=== PATIENT | female | born 1960 | race Caucasian/White ===

== ENCOUNTER 2018-03-25 17:30 | Inpatient (IN) | payer MEDICARE, OTHER ==
[~2018-03-25] VITALS: Ht 172.7 cm; Wt 75.0 kg
[2018-03-25] MEDS: SOD CHLORIDE 0.9% 1,000 ML IV SCH (07:30)
[~2018-03-25 17:30] MED LIST: RANI150T35 PO
[2018-03-25] MEDS ORDERED: SODIUM CHLORIDE 0.9% 1L BAG IV* STA (17:32)
[2018-03-25 17:34] VITALS: Ht 172.7 cm; Wt 75.0 kg
--- NOTE | 2018-03-25 17:37 | ERD ---
ER Documentation Chief Complaint Chief Complaint Syncope versus near syncope with low blood pressure. HPI 58-year-old female who presents from long-term facility with prior history of head trauma who presents to the emergency room with generalized weakness. She describes at least 3 days of generalized weakness with possible mechanical fall several days ago. EMS reports syncope versus near syncope. Blood pressure upon arrival is in the 70s. She denies any head trauma, hematemesis, nausea vomiting or diarrhea. She has no significant pain at this time other than generalized discomfort to her whole body. She denies any other extremity pain or injury. No chest pain shortness of breath pleuritic pain or mid back pain. ROS All systems reviewed and are negative except as per history of present illness. Medications Home Meds Reported Medications Aripiprazole* (Abilify*) 15 Mg Tablet, 15 MG PO DAILY, #30 TAB 03/25/18 Esomeprazole Mag Trihydrate (Nexium) 40 Mg Capsule.dr, 40 MG PO DAILY, #30 CAP 03/25/18 Quetiapine Fumarate* (Quetiapine Fumarate*) 300 Mg Tablet, 300 MG PO HS, TAB 03/25/18 Oxcarbazepine* (Oxcarbazepine*) 300 Mg Tablet, 300 MG PO BID, TAB 03/25/18 Tramadol Hcl* (Ultram*) 50 Mg Tablet, 50 MG PO Q8, TAB 03/25/18 Gabapentin* (Gabapentin*) 100 Mg Capsule, 100 MG PO TID, #90 CAP 03/25/18 Simvastatin* (Zocor*) 20 Mg Tablet, 20 MG PO QHS, #30 TAB 03/25/18 Lisinopril* (Lisinopril*) 40 Mg Tablet, 40 MG PO DAILY, #30 TAB 03/25/18 Loperamide Hcl* (Loperamide Hcl*) 2 Mg Cap, 2 MG PO, CAP 03/25/18 Discontinued Reported Medications Omeprazole* (Omeprazole*) 20 Mg Capsule.dr, 20 MG PO DAILY, #30 CAP 03/25/18 Discontinued Scripts Ranitidine Hcl* (Zantac*) 150 Mg Tablet, 150 MG PO BID PRN for GASTROINTESTINAL UPSET, #30 TAB Prov:MARLENY SORIANO 09/26/14 Allergies Allergies: Coded Allergies: carbamazepine (Verified Allergy, Unknown, RASH, 03/25/18) codeine (Verified Allergy, Unknown, RASH, 03/25/18) PMhx/Soc History of Surgery: No Anesthesia Reaction: No Hx Neurological Disorder: No Hx Respiratory Disorders: No Hx Cardiac Disorders: Yes (HTN) Hx Psychiatric Problems: No Hx Miscellaneous Medical Probl: No Hx Alcohol Use: No Hx Substance Use: No Hx Tobacco Use: Yes FmHx Family History: No diabetes Physical Exam Vitals Vital Signs Date Temp Pulse Resp B/P (MAP) Pulse Ox O2 O2 Flow FiO2 Time Delivery Rate 03/25/18 97.8 86 15 93/47 (62) 100 Room Air 19:00 03/25/18 84 16 94/63 (73) 100 Room Air 18:45 03/25/18 79 17 83/45 (58) 100 Room Air 18:25 03/25/18 79 21 59/45 (50) 93 Room Air 18:20 03/25/18 76 20 84/44 (57) 96 Room Air 17:45 03/25/18 Nasal 2 17:40 Cannula 03/25/18 98.0 74 16 84/52 (63) 99 17:34 Physical Exam Airway is intact Bilateral breath sounds Strong distal pulses No obvious deficits General: Well developed, well nourished, no acute distress Head: Normocephalic, atraumatic Eyes: Pupils equally reactive, EOM intact ENT: very dry mucous membranes Neck: Supple, no lymphadenopathy, No midline tenderness, deformities, step-offs to the cervical spine, full active and passive range of motion without midline pain. Respiratory: Lungs clear bilaterally, no distress, no chest wall tenderness, no crepitus Cardiovascular: RRR, no murmurs, rubs, or gallops Abdominal: Soft, non-tender, non-distended, no peritoneal signs, pelvis is stable : Deferred MSK: No edema, no unilateral swelling, 5/5 strength, no midline tenderness deformities or step-offs to the thoracolumbar spine Neurologic: Alert and oriented, moving all extremities, normal speech, no focal weakness, no cerebellar signs Skin: No ecchymoses or bruising to the chest or abdomen Psych: Normal mood Result Diagram: 03/25/18 1742 03/25/18 1742 Results 24 hrs Laboratory Tests Test 03/25/18 17:42 03/25/18 18:00 White Blood Count 8.6 10^3/ul Red Blood Count 3.69 10^6/ul Hemoglobin 12.1 g/dl Hematocrit 35.4 % Mean Corpuscular Volume 95.9 fl Mean Corpuscular Hemoglobin 32.8 pg Mean Corpuscular Hemoglobin Concent 34.2 g/dl Red Cell Distribution Width 12.4 % Platelet Count 204 10^3/UL Mean Platelet Volume 11.0 fl Immature Granulocytes % 0.300 % Neutrophils % 57.3 % Lymphocytes % 27.8 % Monocytes % 9.8 % Eosinophils % 4.1 % Basophils % 0.7 % Nucleated Red Blood Cells % 0.0 /100WBC Immature Granulocytes # 0.030 10^3/ul Neutrophils # 5.0 10^3/ul Lymphocytes # 2.4 10^3/ul Monocytes # 0.9 10^3/ul Eosinophils # 0.4 10^3/ul Basophils # 0.1 10^3/ul Nucleated Red Blood Cells # 0.0 10^3/ul Prothrombin Time 13.0 Sec Prothrombin Time Ratio 1.0 INR International Normalized Ratio 0.97 Activated Partial Thromboplast Time 26.4 Sec Sodium Level 130 mmol/L Potassium Level 4.5 mmol/L Chloride Level 92 mmol/L Carbon Dioxide Level 18 mmol/L Anion Gap 20 Blood Urea Nitrogen 64 mg/dl Creatinine 11.00 mg/dl Est Glomerular Filtrat Rate mL/min 4 mL/min Glucose Level 97 mg/dl Calcium Level 8.8 mg/dl Total Bilirubin 0.0 mg/dl Direct Bilirubin 0.00 mg/dl Indirect Bilirubin 0.0 mg/dl Aspartate Amino Transf (AST/SGOT) 17 IU/L Alanine Aminotransferase (ALT/SGPT) 10 IU/L Alkaline Phosphatase 77 IU/L Troponin I < 0.012 ng/ml Total Protein 7.5 g/dl Albumin 4.1 g/dl Globulin 3.40 g/dl Albumin/Globulin Ratio 1.20 Lipase 51 U/L POC Venous Lactate 1.2 mmol/L Current Medications Medications Dose Sig/Yusuf Start Time Status Last (Trade) Ordered Route PRN Stop Time Admin Dose Reason Admin Sodium 2,700 ml BOLUS OVER 2 03/25/18 DC 03/25/18 Chloride HOURS STAT 17:32 03/25/18 18:17 (NS) IV* 17:34 Procedures/MDM EKG, MONITORS, & DIAGNOSTIC IMAGING: EKG: I reviewed and interpreted a 12-lead EKG. Rhythm: Normal sinus rhythm ST Changes: No contiguous ST segment elevations T waves: No contiguous T wave inversions Impression: [No evidence of acute cardiac ischemia] CXR IMPRESSION: Mild right base atelectasis/consolidation. Aortic calcifications. Further findings as detailed above. RPTAT: HVF CT brain IMPRESSION: Evaluation is mildly limited due to motion degradation. 1. No acute intracranial hemorrhage or extra-axial fluid collection. 2. Minimal generalized cerebral volume loss. Further findings as detailed above. RPTAT: HVF CT a/p IMPRESSION: Sigmoid diverticulosis without evidence of diverticulitis. Minimal vascular calcifications reflective of atherosclerosis. Otherwise no acute abnormality identified within the abdomen and pelvis. LAB INTERPRETATION: * CBC shows no evidence of infection with a normal white count 8.6, hemoglobin of 12.1 and normal platelets * Chemistry with multiple abnormalities including hyponatremia of 130, acute renal failure with metabolic acidosis with a BUN of 64 and a creatinine of 11 * Normal lactic acid * Negative troponin MEDICAL DECISION MAKING: The patient presents with nonspecific symptoms. Additionally she may have had a fall several days ago. Advanced imaging will be obtained including CT imaging of the head and abdomen and pelvis. Clinically she appears dehydrated. The patient's laboratory testing reveals acute renal failure. Patient's laboratory testing suggest dehydration in the setting of hyponatremia. Elevated creatinine. The patient has no evidence of infectious process with a normal white count, no fever, normal lactic acid. Urinalysis is still pending. The patient's blood pressure remains borderline however she appears well clinically. She is protecting her airway, conversive and appropriate. Her blood pressure seems to be responding to fluid resuscitation at this time. Currently the patient does not have a source of infection and does not have an infectious process that warrants antibiotics. Blood cultures have been collected, continue to monitor. ER COURSE: * The patient is still undergoing fluid resuscitation. The patient's blood pressure is improving. At this point I do not believe a central line is indicated. She is mentating well, perfusing and seems to be responding to fluid resuscitation. * I spoke to Dr. Skinner, on-call for nephrology who will consult on the case. No indication for emergent dialysis at this time. * Advanced imaging reveals no acute process at this time. CONSULTATION: Nephrology as above DISPOSITION PLAN: Intensive care unit Critical Care Note: Total time: 45 minutes Indication/Organ System Threat: Severe dehydration, acute renal failure I spent the above amount of critical care time with the patient, not including billable procedures. This included chart review, consultations, repeat bedside evaluations, and titration of appropriate medications to prevent cardiopulmonary or respiratory collapse. Departure Diagnosis: Primary Impression: Acute renal failure Acute renal failure type: unspecified Qualified Codes: N17.9 - Acute kidney failure, unspecified Additional Impressions: Hyponatremia Severe dehydration Condition: Critical TINAA ORTEGA MD Mar 25, 2018 17:37
[2018-03-25] MEDS ORDERED: LOPE-123 PO (18:35)
[2018-03-25] MEDS ORDERED: OMEP20CA16 PO (18:35)
[2018-03-25] MEDS ORDERED: SIMV20TA PO (18:36)
[2018-03-25] MEDS ORDERED: LISI40TA3 PO (18:36)
[2018-03-25] MEDS ORDERED: GABA100C14 PO (18:36)
[2018-03-25] MEDS ORDERED: TRAM50TA PO (18:37)
[2018-03-25] MEDS ORDERED: OXCA300T41 PO (18:38)
[2018-03-25] MEDS ORDERED: QUET300T18 PO (18:38)
[2018-03-25] MEDS ORDERED: ESOM40CA PO (18:38)
[2018-03-25] MEDS ORDERED: ARIP15TA3 PO (18:39)
[2018-03-25] MEDS ORDERED: BISACODYL (EC) 5 MG TAB PO PRN (20:30)
[2018-03-25] MEDS ORDERED: ONDANSETRON 4 MG TAB PO PRN (20:30)
[2018-03-25] MEDS ORDERED: ACETAMINOPHEN 650MG/20.3ML CUP PO PRN (20:30)
[2018-03-25] MEDS ORDERED: DOCUSATE SODIUM 100 MG CAP PO PRN (20:30)
--- NOTE | 2018-03-25 20:34 | HP ---
Date/Time of Note Date/Time of Note DATE: 03/25/18 TIME: 20:33 Assessment/Plan VTE Prophylaxis SCD applied (from Nsg): Yes Pharmacological prophylaxis: heparin Lines/Catheters IV Catheter Type (from Nrsg): Saline Lock Assessment/Plan Hospital Course This is a 58-year-old female being admitted to the ICU floor for: #1 Volume depletion with hypotension: Patient does have a sodium of 130. Patient appears to be severely dehydrated. Will check a CK level. Patient was started on aggressive IV fluid hydration in the ED, will continue aggressive IV fluid hydration with normal saline. Patient's blood pressures do seem to be responding to fluid resuscitation. Her mucous membranes do appear dry. Serial CMP's. #2 severe nonoliguric acute versus acute on chronic kidney injury: I do not have a previous baseline creatinine. Creatinine on presentation was 11. Suspicion right now is likely prerenal, secondary to severe volume depletion, christy use. Continue aggressive IV fluid hydration. Avoid nephrotoxic agents. Hold christy. Will check renal ultrasound, urine microscope, urinalysis, urine studies. Will consult nephrology Dr. Horton. #3 acute encephalopathy: Toxic metabolic versus other. CT scan of the head is negative. Patient does appear to be possibly under the influence of illicit substance. I will check a urine drug screen. #4 Syncopal versus near syncopal episode: CT scan of the head was negative. Will check echocardiogram, carotid ultrasound. #5 possible history of hypertension: We will need to reassess when encephalopathy improved, corroborate with any friends or family #6 possible history of mood disorder: We will need to reassess when encephalopathy improved, corroborate with any friends or family #7 possible history of hyperlipidemia: We will check lipid panel, We will need to reassess when encephalopathy improved, corroborate with any friends or family #8 DVT GI prophylaxis: Heparin, Protonix Further treatment strategy will be implemented as per the clinical course greater than 35 minutes critical care time spent on the care management this patient. Result Diagram: 03/25/18 1742 03/25/18 1742 Results 24hrs Laboratory Tests Test 03/25/18 17:42 03/25/18 18:00 White Blood Count 8.6 Red Blood Count 3.69 L Hemoglobin 12.1 Hematocrit 35.4 L Mean Corpuscular Volume 95.9 Mean Corpuscular Hemoglobin 32.8 Mean Corpuscular Hemoglobin Concent 34.2 Red Cell Distribution Width 12.4 Platelet Count 204 Mean Platelet Volume 11.0 H Immature Granulocytes % 0.300 Neutrophils % 57.3 Lymphocytes % 27.8 Monocytes % 9.8 Eosinophils % 4.1 Basophils % 0.7 Nucleated Red Blood Cells % 0.0 Immature Granulocytes # 0.030 Neutrophils # 5.0 Lymphocytes # 2.4 Monocytes # 0.9 Eosinophils # 0.4 Basophils # 0.1 Nucleated Red Blood Cells # 0.0 Prothrombin Time 13.0 Prothrombin Time Ratio 1.0 INR International Normalized Ratio 0.97 Activated Partial Thromboplast Time 26.4 Sodium Level 130 L Potassium Level 4.5 Chloride Level 92 L Carbon Dioxide Level 18 L Anion Gap 20 H Blood Urea Nitrogen 64 H Creatinine 11.00 H Est Glomerular Filtrat Rate mL/min 4 L Glucose Level 97 Calcium Level 8.8 Total Bilirubin 0.0 L Direct Bilirubin 0.00 Indirect Bilirubin 0.0 Aspartate Amino Transf (AST/SGOT) 17 Alanine Aminotransferase (ALT/SGPT) 10 L Alkaline Phosphatase 77 Troponin I < 0.012 Total Protein 7.5 Albumin 4.1 Globulin 3.40 H Albumin/Globulin Ratio 1.20 Lipase 51 POC Venous Lactate 1.2 HPI/ROS Admit Date/Time Admit Date/Time Hx of Present Illness Chief complaint: Generalized weakness, possible syncope The following history was obtained from the ED physician documentation as well as from the patient however the patient also is a poor historian. This is a 58-year-old female who presents from [facility] facility with prior history of head trauma who presents to the emergency room with generalized weakness. She describes at least 3 days of generalized weakness with possible mechanical fall several days ago. EMS reports syncope versus near syncope. Blood pressure upon arrival is in the 70s. Patient is a poor historian and she does display a odd affect. She denies any head trauma, hematemesis, nausea vomiting or diarrhea. She denies any history of kidney disease. She is not able to provide me an adequate history regarding her past medical history. Allergies: NKDA Medications: See May Const: As per HPI Eyes : No pain discharge or redness or change in visual acuity ENT: No pain, sore throat, congestion, congestion, dysphagia or discharge Respiratory: No shortness of breath, cough, sputum, wheezing, or pleuritic pain Cardiovascular: No chest pain, palpitation, PND, or edema GI : no change in appetite, abdominal pain, nausea, vomiting, diarrhea, constipation, or change in the color his stool Genitourinary: No dysuria, hematuria, flank pain , discharge or CVA tenderness Musculoskeletal: No joint pain, back pain, neck pain, restricted range of motion in neck or joints Skin: No rash, bruising or hives Neuro: As per HPI Endocrine: No polyuria, polydipsia, temperature intolerance Psych: No hallucination, depression, anxiety or suicidal ideation Additional Comments PROCEDURE: CT Abdomen and pelvis without contrast. CLINICAL INDICATION: Abdominal pain. TECHNIQUE: CT scan of the abdomen and pelvis was performed on a multi- detector high-resolution CT scanner. Contiguous axial images were obtained from the lung bases to the ischial tuberosities without intravenous contrast. Coronal and sagittal reformatted images were also obtained. Images were reviewed on the PACS workstation. DICOM images are available. One or more of the following dose reduction techniques were used: - Automated exposure control. - Adjustment of the mA and/or kV according to patient size. - Use of iterative reconstruction technique. Exam CTD/vol = 15.49 mGy. Total exam DLP = 993.19 mGy-cm. COMPARISON: None. FINDINGS: Evaluation of the lung bases demonstrates mild bibasilar atelectasis and scarring. Abdomen: The liver is normal in size. There is no focal mass or dilatation of the biliary tree. The gallbladder is not distended. The spleen, pancreas and bilateral adrenal glands are within normal limits. Bilateral kidneys are normal in size with no contour deforming mass identified. There is no radiopaque renal or ureteral calculus identified. There is no hydronephrosis or hydroureter. There is no retroperitoneal adenopathy. The abdominal aorta is of normal caliber. There are minimal scattered atherosclerotic calcifications. There is no abnormal bowel wall thickening or distension. There is no bowel obstruction or free air. A normal appendix is identified. There is diverticulosis of the sigmoid colon without evidence of diverticulitis. There is no ascites. Pelvis: The bladder is unremarkable. The uterus and adnexa are within normal limits. There is no significant pelvic adenopathy or free fluid. Evaluation of the osseous structures demonstrates no suspicious lytic or blastic lesion. IMPRESSION: Sigmoid diverticulosis without evidence of diverticulitis. Minimal vascular calcifications reflective of atherosclerosis. Otherwise no acute abnormality identified within the abdomen and pelvis. .Macario Modi MD, MD Date Time Electronically viewed and signed by .Macario Modi MD, MD on 03/25/2018 18:27 .T/ CC: TIANA ORTEGA MD [id number] PROCEDURE: Noncontrast CT Head. CLINICAL INDICATION: Syncope. Head injury. TECHNIQUE: Noncontrast CT of the head was obtained. The administered radiation dose was CTDI vol = 39.34 mGy, DLP = 634.23 mGy-cm. One or more of the following dose reduction techniques were used: Automated exposure control, Adjustment of the mA and/or kV according to patient size, or Use of iterative reconstruction technique. DICOM images are available. COMPARISON: There are no similar studies submitted for comparison. FINDINGS: Evaluation is mildly limited due to motion degradation. There is minimal generalized cerebral volume loss. There is no loss of lane-white differentiation to suggest acute territorial infarction. There is no acute intracranial hemorrhage or extra-axial fluid collection. There is no mass effect. No midline shift is identified. The orbits are within normal limits. The paranasal sinuses are well aerated. No destructive osseous lesion is identified. IMPRESSION: Evaluation is mildly limited due to motion degradation. 1. No acute intracranial hemorrhage or extra-axial fluid collection. 2. Minimal generalized cerebral volume loss. Further findings as detailed above. RPTAT: HVF .Kelby Morales MD, MD Date Time Electronically viewed and signed by .Kelby Morales MD, MD on 03/25/2018 18:13 .F/ CC: TIANA ORTEGA MD [id number] PROCEDURE: XR 1 view Chest. CLINICAL INDICATION: Sepsis. TECHNIQUE: Portable Single frontal view of the chest was obtained. COMPARISON: There are no similar studies submitted for comparison. FINDINGS: The heart is normal in size. There are mild aortic calcifications. There is mild right base atelectasis/consolidation. There is no pleural effusion. No pneumothorax is identified. The osseous structures are intact. IMPRESSION: Mild right base atelectasis/consolidation. Aortic calcifications. Further findings as detailed above. RPTAT: HVF .Kelby Morales MD, MD Date Time Electronically viewed and signed by .Kelby Morales MD, MD on 03/25/2018 18:14 .F/ CC: TIANA ORTEGA MD [id number] PMH/Family/Social Past Medical History Unknown, patient unable to provide adequate history at the current time Coded Allergies: carbamazepine (Verified Allergy, Unknown, RASH, 03/25/18) codeine (Verified Allergy, Unknown, RASH, 03/25/18) Past Surgical History Unknown, patient unable to provide adequate history at the current time Family History Significant Family History: other (Unknown, patient unable to provide adequate history at the current time) Social History Reports that she smokes but denies other drugs. Alcohol Use: none Smoking Status: Current every day smoker Exam/Review of Systems Vital Signs Vitals Vital Signs Date Temp Pulse Resp B/P (MAP) Pulse Ox O2 O2 Flow FiO2 Time Delivery Rate 03/25/18 97.8 86 15 93/47 (62) 100 Room Air 19:00 03/25/18 2 17:40 Exam Exam General: Patient is currently lying in bed she does appear to be dehydrated, she has an odd affect, she is not able to provide me any useful past medical history. HEENT: Atraumatic, normocephalic. The pupils are equal, round and reactive. Extraocular motor are intact, mucous membranes dry Neck: Supple with full range of motion. No rigidity or meningismus Chest: Nontender Lungs: Clear to auscultation bilaterally no crackles rales or wheezing Heart: Normal S1-S2, Regular rhythm and rate. Abdomen: Soft , nontender, nondistended , bowel sounds are present. No guarding no rebound tenderness , No masses or organomegaly. No costovertebral temporal angle mass Extremities: Normal to inspection, no edema no cyanosis Neurologic: Alert oriented to person place, speech is normal. However she does have an odd affect and is not able to give me an adequate medical history. She does not appear possibly to be under the influence of any illicit substance. Additional Comments PROCEDURE: CT Abdomen and pelvis without contrast. CLINICAL INDICATION: Abdominal pain. TECHNIQUE: CT scan of the abdomen and pelvis was performed on a multi- detector high-resolution CT scanner. Contiguous axial images were obtained from the lung bases to the ischial tuberosities without intravenous contrast. Coronal and sagittal reformatted images were also obtained. Images were reviewed on the PACS workstation. DICOM images are available. One or more of the following dose reduction techniques were used: - Automated exposure control. - Adjustment of the mA and/or kV according to patient size. - Use of iterative reconstruction technique. Exam CTD/vol = 15.49 mGy. Total exam DLP = 993.19 mGy-cm. COMPARISON: None. FINDINGS: Evaluation of the lung bases demonstrates mild bibasilar atelectasis and scarring. Abdomen: The liver is normal in size. There is no focal mass or dilatation of the biliary tree. The gallbladder is not distended. The spleen, pancreas and bilateral adrenal glands are within normal limits. Bilateral kidneys are normal in size with no contour deforming mass identified. There is no radiopaque renal or ureteral calculus identified. There is no hydronephrosis or hydroureter. There is no retroperitoneal adenopathy. The abdominal aorta is of normal caliber. There are minimal scattered atherosclerotic calcifications. There is no abnormal bowel wall thickening or distension. There is no bowel obstruction or free air. A normal appendix is identified. There is diverticulosis of the sigmoid colon without evidence of diverticulitis. There is no ascites. Pelvis: The bladder is unremarkable. The uterus and adnexa are within normal limits. There is no significant pelvic adenopathy or free fluid. Evaluation of the osseous structures demonstrates no suspicious lytic or blastic lesion. IMPRESSION: Sigmoid diverticulosis without evidence of diverticulitis. Minimal vascular calcifications reflective of atherosclerosis. Otherwise no acute abnormality identified within the abdomen and pelvis. .Macario Modi MD, MD Date Time Electronically viewed and signed by .Macario Modi MD, MD on 03/25/2018 18:27 .T/ CC: TIANA ORTEGA MD [id number] PROCEDURE: Noncontrast CT Head. CLINICAL INDICATION: Syncope. Head injury. TECHNIQUE: Noncontrast CT of the head was obtained. The administered radiation dose was CTDI vol = 39.34 mGy, DLP = 634.23 mGy-cm. One or more of the following dose reduction techniques were used: Automated exposure control, Adjustment of the mA and/or kV according to patient size, or Use of iterative reconstruction technique. DICOM images are available. COMPARISON: There are no similar studies submitted for comparison. FINDINGS: Evaluation is mildly limited due to motion degradation. There is minimal generalized cerebral volume loss. There is no loss of lane-white differentiation to suggest acute territorial infarction. There is no acute intracranial hemorrhage or extra-axial fluid collection. There is no mass effect. No midline shift is identified. The orbits are within normal limits. The paranasal sinuses are well aerated. No destructive osseous lesion is identified. IMPRESSION: Evaluation is mildly limited due to motion degradation. 1. No acute intracranial hemorrhage or extra-axial fluid collection. 2. Minimal generalized cerebral volume loss. Further findings as detailed above. RPTAT: HVF .Kelby Morales MD, MD Date Time Electronically viewed and signed by .Kelby Morales MD, MD on 03/25/2018 18:13 .F/ CC: TIANA ORTEGA MD [id number] PROCEDURE: XR 1 view Chest. CLINICAL INDICATION: Sepsis. TECHNIQUE: Portable Single frontal view of the chest was obtained. COMPARISON: There are no similar studies submitted for comparison. FINDINGS: The heart is normal in size. There are mild aortic calcifications. There is mild right base atelectasis/consolidation. There is no pleural effusion. No pneumothorax is identified. The osseous structures are intact. IMPRESSION: Mild right base atelectasis/consolidation. Aortic calcifications. Further findings as detailed above. RPTAT: HVF .Kelby Morales MD, MD Date Time Electronically viewed and signed by .Kelby Morales MD, MD on 03/25/2018 18:14 .F/ CC: TIANA ORTEGA MD [id number] NATHANIEL BAE Mar 25, 2018 20:34
[2018-03-25] MEDS ORDERED: SOD CHLORIDE 0.9% 1,000 ML IV STA (21:30)
[2018-03-25] MEDS: ALBUTEROL 0.083% (NEB) 2.5 MG/3 ML AMP NEB SCH (21:38)
[2018-03-25] MEDS: IPRATROPIUM (NEB) 0.5 MG/2.5 ML AMP NEB SCH (21:38)
[2018-03-25] MEDS: HEPARIN 5,000 UNIT/1 ML VIAL SC SCH (22:00)
[2018-03-26] VITALS (11 sets, daily range): BP systolic 90–123; BP diastolic 54–82; PULSE 84–99; RESP 16–21
[2018-03-26] MEDS ORDERED: SOD CHLORIDE 0.9% 1,000 ML IV ONE
[2018-03-26] MEDS: ALBUTEROL 0.083% (NEB) 2.5 MG/3 ML AMP NEB SCH ×5 (02:21→19:54)
[2018-03-26] MEDS: IPRATROPIUM (NEB) 0.5 MG/2.5 ML AMP NEB SCH ×5 (02:21→19:54)
[2018-03-26] MEDS: HEPARIN 5,000 UNIT/1 ML VIAL SC SCH ×3 (06:00→21:20)
[2018-03-26] MEDS: PANTOPRAZOLE (EC) 40 MG TAB PO SCH (07:36)
[2018-03-26] MEDS: SOD CHLORIDE 0.9% 1,000 ML IV SCH ×3 (08:43→17:08)
--- NOTE | 2018-03-26 09:18 | CONS ---
DATE OF ADMISSION: 03/25/2018 DATE OF CONSULTATION: 03/26/2018 REASON FOR CONSULTATION: Acute kidney injury. HISTORY OF PRESENT ILLNESS: This is a 58-year-old female with a past medical history of neuropathy, history of hypertension, mood disorder who presents to [facility] from skilled nurs [facility] facility due to generalized weakness. The patient states that over the last several days she has been feeling weak with noted tremors. The patient denied any nausea, vomiting, any head trauma. As a result, the patient came into the emergency room. Upon arrival, the patient had laboratory data d rawn, which showed a BUN 64, creatinine of 11 and sodium 130. In the emergency room, the patient was given aggressive IV hydration. The patient was then subsequently transferred to intensive care unit for further evaluation. In terms of patient's renal history, the patient's previous baseline creatinine of around 0.7 mg/dL. The patient does take CELESTE inhibitor for hypertension, but denies any prior history of acute kidney i njury and chronic kidney disease. The patient denies any hemoptysis, hematemesis, or hematochezia. PAST MEDICAL HISTORY: History of hypertension, history of neuropathy, history of dyslipidemia, histo ry of mood disorder, history of gastroesophageal reflux disease. ALLERGIES: PLEASE SEE LIST. FAMILY HISTORY: No family history of diabetes. PAST SURGICAL HISTORY: None. MEDICATIONS: The patient's medications have been reviewed. REVIEW OF SYSTEMS: A 14-point review of systems conducted. Pertinent positives stated in HPI, other tripathi negative. PHYSICAL EXAMINATION: VITAL SIGNS: Blood pressure is 98/67, respirations 20, pulse 87, temperature 98.3. HEENT: Head is normocephalic. NECK: Supple. HEART: Regular rate. LUNGS: Show diminished breath sounds at the base. ABDOMEN: Soft, nontender to palpation. No rebound or guarding. EXTREMITIES: Negative for clubbing, cyanosis, no edema. DERMATOLOGIC: No rashes. MUSCULOSKELETAL: No joint effusion. NEUROLOGIC: No change in exam. LABORATORY DATA: White count 5.2, hemoglobin 11.2, platelet count is 171. The patient's sodium 136, potassium 4.9, BUN 53, creatinine 6.53. ASSESSMENT AND PLAN: This is a 58-year-old female who presents with: 1. Nonoliguric acute kidney injury with previous baseline creatinine of 0.68 mg/dL in 2014. Etiolog y of current acute kidney injury is likely secondary to hemodynamics, volume depletion. The patient' s urinalysis was reviewed, showed no active sediment, FENa greater than 1%, approximately nonglomerul ar proteinuria of 500 mg per gram of creatinine. The patient's renal function is improving with IV h ydration. Please note that CELESTE inhibitor effect may also have been a contributing factor. Plan at t his point would be to continue aggressive IV hydration. Continue to monitor I's and O's closely. We will continue supportive care, renally dose all medicines, and avoid nephrotoxins. Please also note the patient's renal ultrasound was reviewed, which showed normal kidney function and echogenicity. 2. Hypernatremia secondary to acute kidney injury, improving. 3. Anemia. Monitor hemoglobin and hematocrit levels. 4. Mineral bone disorder, monitor calcium and phosphorus levels. 5. Generalized weakness and near syncope. Etiology is likely secondary to volume depletion, rule ou t infection. Continue current medical management. Check a 2D echo. Continue IV hydration. 6. Systemic inflammatory response syndrome, etiology is unclear, questionable infectious versus hemo dynamics. Continue current treatment plan. Continue IV hydration. Follow up cultures. Monitor shayy sely. Thank you, Dr. Bae, for this interesting consult. It will be a pleasure to follow patient with y ou throughout the hospital course. Dictated By: GLENROY LEONARDO DO NR/NTS Conf#: [id number] DID#: [id number] CC: NATHANIEL BAE MD; LILIAN URIBE MD;*[facility]*
--- NOTE | 2018-03-26 15:17 | PN ---
Date/Time of Note Date/Time of Note DATE: 03/26/18 TIME: 15:16 Assessment/Plan VTE Prophylaxis SCD applied (from Nsg): Yes Pharmacological prophylaxis: heparin Lines/Catheters IV Catheter Type (from Nrsg): Peripheral IV Urinary Cath still in place: Yes Reason Cath still needed: urinary retention Assessment/Plan Hospital Course 58 yo female presents with severe LAURA LAURA: - 2/2 volume depletion and CELESTE-I use - Continue IVF, trend creatinine Result Diagram: 03/26/18 0434 03/26/18 0434 Results 24hrs Laboratory Tests Test 03/25/18 17:42 03/25/18 18:00 03/25/18 21:29 03/25/18 23:04 White Blood Count 8.6 Red Blood Count 3.69 L Hemoglobin 12.1 Hematocrit 35.4 L Mean Corpuscular 95.9 Volume Mean Corpuscular 32.8 Hemoglobin Mean Corpuscular 34.2 Hemoglobin Concen t Red Cell 12.4 Distribution Width Platelet Count 204 Mean Platelet 11.0 H Volume Immature 0.300 Granulocytes % Neutrophils % 57.3 Lymphocytes % 27.8 Monocytes % 9.8 Eosinophils % 4.1 Basophils % 0.7 Nucleated Red 0.0 Blood Cells % Immature 0.030 Granulocytes # Neutrophils # 5.0 Lymphocytes # 2.4 Monocytes # 0.9 Eosinophils # 0.4 Basophils # 0.1 Nucleated Red 0.0 Blood Cells # Prothrombin Time 13.0 Prothrombin Time 1.0 Ratio INR International 0.97 Normalized Ratio Activated 26.4 Partial Thrombopl ast Time Sodium Level 130 L Potassium Level 4.5 Chloride Level 92 L Carbon Dioxide 18 L Level Anion Gap 20 H Blood Urea 64 H Nitrogen Creatinine 11.00 H Est Glomerular 4 L Filtrat Rate mL/min Glucose Level 97 Osmolality 283 Calcium Level 8.8 Total Bilirubin 0.0 L Direct Bilirubin 0.00 Indirect 0.0 Bilirubin Aspartate Amino 17 Transf (AST/SGOT) Alanine 10 L Aminotransferase (ALT/SGPT) Alkaline 77 Phosphatase Creatine Kinase 356 H Troponin I < 0.012 Total Protein 7.5 Albumin 4.1 Globulin 3.40 H Albumin/Globulin 1.20 Ratio Lipase 51 POC Venous 1.2 Lactate Lactic Acid Level 1.0 Urine Color YELLOW Urine Clarity SLIGHTLY CLOUDY A Urine pH 5.0 Urine Specific 1.012 [place] Urine Ketones NEGATIVE Urine Nitrite NEGATIVE Urine Bilirubin NEGATIVE Urine NEGATIVE Urobilinogen Urine Leukocyte NEGATIVE Esterase Urine Microscopic 1 RBC Urine Microscopic 3 WBC Urine Squamous FEW Epithelial Cells Urine Bacteria FEW A Urine Mucus FEW A Urine Hemoglobin 1+ H Urine Osmolality 338 Urine Random 128.18 Creatinine Urine Random 75 Sodium Urine 0.52 Protein/Creatinin e Ratio Urine Glucose NEGATIVE Urine Total 67.0 H Protein Urine Opiates Negative Screen Urine Negative Barbiturates Urine POSITIVE Amphetamines Screen Urine Negative Benzodiazepines Screen Urine Cocaine Negative Screen Urine Negative Cannabinoids Test 03/26/18 00:05 03/26/18 04:34 Ethyl Alcohol < 10.0 H Level White Blood Count 5.2 # Red Blood Count 3.40 L Hemoglobin 11.2 L Hematocrit 32.9 L Mean Corpuscular 96.8 Volume Mean Corpuscular 32.9 Hemoglobin Mean Corpuscular 34.0 Hemoglobin Concen t Red Cell 12.3 Distribution Width Platelet Count 171 Mean Platelet 10.9 H Volume Immature 0.400 Granulocytes % Neutrophils % 59.0 Lymphocytes % 26.3 Monocytes % 9.5 Eosinophils % 4.0 Basophils % 0.8 Nucleated Red 0.0 Blood Cells % Immature 0.020 Granulocytes # Neutrophils # 3.1 Lymphocytes # 1.4 Monocytes # 0.5 Eosinophils # 0.2 Basophils # 0.0 Nucleated Red 0.0 Blood Cells # Sodium Level 136 Potassium Level 4.9 Chloride Level 106 # Carbon Dioxide 19 L Level Anion Gap 11 # Blood Urea 53 H Nitrogen Creatinine 6.53 #H Est Glomerular 7 L Filtrat Rate mL/min Glucose Level 104 Calcium Level 8.1 L Total Bilirubin 0.0 L Direct Bilirubin 0.00 Indirect 0.0 Bilirubin Aspartate Amino 21 Transf (AST/SGOT) Alanine 14 Aminotransferase (ALT/SGPT) Alkaline 70 Phosphatase Total Protein 6.3 # Albumin 3.4 Globulin 2.90 Albumin/Globulin 1.17 Ratio Subjective 24 Hr Interval Summary Free Text/Dictation Denies complaints Comfortable Says she hasn't been eating much recently Exam/Review of Systems Vital Signs Vitals Vital Signs Date Temp Pulse Resp B/P (MAP) Pulse Ox O2 O2 Flow FiO2 Time Delivery Rate 03/26/18 17 96/60 (72) 98 Room Air 15:00 03/26/18 99 12:10 03/26/18 97.7 12:00 03/25/18 21 21:39 03/25/18 2 17:40 Medications Medications Current Medications Sodium Chloride 1,000 ml @ 125 mls/hr Q8H IV Last administered on 03/26/18at 08:43; Admin Dose 125 MLS/HR; Start 03/25/18 at 20:28 Ondansetron HCl (Zofran Tab) 4 mg Q6H PRN PO NAUSEA AND/OR VOMITING; Start 03/25/18 at 20:30 Albuterol (Proventil 0.083% (Neb)) 2.5 mg Q4H RESP THERAPY NEB Last administered on 03/25/18at 21:38; Admin Dose 2.5 MG; Start 03/25/18 at 21:00 Ipratropium [place] (Atrovent 0.02% (Neb)) 0.5 mg Q4H RESP THERAPY NEB Last administered on 03/25/18at 21:38; Admin Dose 0.5 MG; Start 03/25/18 at 21:00 Acetaminophen (Tylenol Liquid) 650 mg Q6H PRN PO PAIN LEVEL 1-3 OR FEVER; Start 03/25/18 at 20:30 Docusate Sodium (Colace) 100 mg Q12H PRN PO CONSTIPATION; Start 03/25/18 at 20:30 Bisacodyl (Dulcolax) 5 mg DAILY PRN PO CONSTIPATION; Start 03/25/18 at 20:30 Pantoprazole (Protonix Tab) 40 mg DAILY@06 PO Last administered on 03/26/18at 07:36; Admin Dose 40 MG; Start 03/26/18 at 06:00 Heparin Sodium (Porcine) (Heparin (5000 Units/1ml)) 5,000 unit Q8 SC ; Start 03/25/18 at 22:00 Influenza Virus Vaccine Quadrival (Fluzone) 0.5 ml ONCE ONCE IM* ; Start 03/27/18 at 09:00; Stop 03/27/18 at 09:01 DAVI CRABTREE MD Mar 26, 2018 15:17
--- NOTE | 2018-03-26 18:03 | RADRPT ---
Echocardiogram Report Patient Name: ELIJAH CHEN Gender: Female Date: 1960 Study Date: 26-Mar-2018 Seat Cover Maker: Thelma Downs RDCS Location: 9 Ref. Physician: NATHANIEL BAE Quality: Adequate Procedures: Transthoracic echocardiogram with complete 2D, M-Mode, and doppler examination. Indications: Syncope. 2D/M Mode Doppler Measurement Value Normal Ranges Measurement Value Normal Ranges LVIDd 2D 4.1 3.5 - 5.6 cm KEILY Vmax 2.1 cm2 LVIDs 2D 2.3 2.1 - 4.1 cm KEILY VTI 1.9 cm2 FS 2D 44.9 % AV Mean Leo 1.5 m/sec LVPWd 2D 1.1 0.6 - 1.1 cm AV Mean PG 10.0 mmHg IVSd 2D 1.1 0.6 - 1.1 cm AV Peak Leo 2.3 m/sec IVS/LVPW 2D 1.0 AV Peak PG 21.0 mmHg AoR Diam 2D 2.5 2.0 - 3.7 cm AV VTI 40.2 cm LA/Ao 2D 1 0 - 1 LVOT Peak Leo 1.5 m/sec EDV 2D 67.9 cm3 LVOT Peak PG 9.0 mmHg ESV 2D 11.4 cm3 MV E Peak Leo 1.0 m/sec LA Dimen 2D 3.4 2.3 - 4.0 cm MV A Peak Leo 0.9 m/sec LVOT Area 3.1 cm2 MV E/A 1.1 MV Decel Time 239 msec MV E/A 1.1 Findings Left Ventricle: Hyperdynamic left ventricular systolic function. Normal left ventricular cavity size. Normal left ventricular wall thickness. Ejection fraction is visually estimated at 70 %. Tissue Doppler/Mitral Doppler indices are within normal limits. Right Ventricle: Normal right ventricular size. Normal right ventricular systolic function. Left Atrium: The left atrium is normal in size. Right Atrium: The right atrium is normal in size. Mitral Valve: Normal appearance of the mitral valve. Trace mitral regurgitation. Aortic Valve: Normal appearance of the aortic valve. No significant aortic stenosis or insufficiency. Tricuspid Valve: Normal appearance of the tricuspid valve. Unable to obtain RVSP due to minimal presence of tricuspid regurgitation. Pulmonic Valve: Normal pulmonic valve appearance. Pericardium: Normal pericardium with no significant pericardial effusion. Aorta: Normal aortic root. IVC: Normal size and normal respiratory collapse consistent with normal right atrial pressure. Conclusions Hyperdynamic left ventricular systolic function. Normal left ventricular cavity size. Normal left ventricular wall thickness. Ejection fraction is visually estimated at 70 %. Tissue Doppler/Mitral Doppler indices are within normal limits. No significant valvular stenosis or regurgitation seen. Unable to obtain RVSP due to minimal presence of tricuspid regurgitation. Normal size and normal respiratory collapse consistent with normal right atrial pressure. Electronically Signed By: Rajan Avila 26-Mar-2018 18:02:25 -0800 Patient Name: ELIJAH CHEN Study Date: 26-Mar-2018 [id number]
[2018-03-27] MEDS: ALBUTEROL 0.083% (NEB) 2.5 MG/3 ML AMP NEB SCH ×5 (00:47→16:06)
[2018-03-27] MEDS: IPRATROPIUM (NEB) 0.5 MG/2.5 ML AMP NEB SCH ×5 (00:47→16:06)
[2018-03-27 02:48] VITALS: BP 121/55; PULSE 74; RESP 16
[2018-03-27] MEDS: HEPARIN 5,000 UNIT/1 ML VIAL SC SCH ×2 (05:22→14:00)
[2018-03-27] MEDS: SOD CHLORIDE 0.9% 1,000 ML IV SCH (05:33)
[2018-03-27] MEDS: PANTOPRAZOLE (EC) 40 MG TAB PO SCH (05:33)
--- NOTE | 2018-03-27 08:32 | PN ---
DATE: 03/27/2018 SUBJECTIVE: The patient is stable, no events overnight. No fevers, chills, nausea, or vomiting. OBJECTIVE: VITAL SIGNS: Blood pressure is 121/55, respirations 16, pulse 74, temperature 97.5. HEENT: Head is normocephalic. NECK: Supple. HEART: Regular rate. LUNGS: Show diminished breath sounds at the base. ABDOMEN: Soft, nontender to palpation without rebound or guarding. EXTREMITIES: Negative for clubbing, cyanosis, no edema. DERMATOLOGIC: No rashes. MUSCULOSKELETAL: No joint effusion. NEUROLOGIC: No change in exam. MEDICATIONS: Reviewed. LABORATORY DATA: Shows sodium 138, potassium 4.7, BUN 21, creatinine 1.08. White count 4.7, hemoglo bin 9.1, platelet count is 171. ASSESSMENT AND PLAN: 1. Nonoliguric acute kidney injury with previous baseline creatinine of 0.68 mg/dL. Etiology of acu te kidney injury is secondary to volume depletion. Renal function is markedly improved with IV fluid s. Plan at this point is to discontinue IV hydration. Continue to encourage oral intake. Continue supportive care, renally dose all medicines and avoid nephrotoxins. 2. Hypernatremia, improved. Continue to monitor. 3. Anemia. Monitor hemoglobin and hematocrit levels. 4. Mineral bone disorder, monitor calcium and phosphorus levels. 5. Generalized weakness. 6. Syncope, likely due to volume depletion. Continue to monitor. 7. Systemic inflammatory response syndrome, improving. No obvious evidence of infection. Continue to observe. Dictated By: GLENROY LEONARDO DO NR/NTS Conf#: [id number] DID#: [id number] CC: LILIAN URIBE MD; NATHANIEL BAE MD;*EndCC*
[2018-03-27 09:34] VITALS: BP 137/97; PULSE 89; RESP 18
--- NOTE | 2018-03-27 14:42 | PDOCDIS ---
Discharge Instructions DIAGNOSIS Discharge Diagnosis LAURA CONDITION [id number] Patient Condition: [id number] Stable HOME CARE INSTRUCTIONS: [id number] Special Diet: [id number] Regular FOLLOW UP/APPOINTMENTS Follow-up Plan Stop taking lisinopril and gabapentin and tramadol You are on numerous sedating medications. Discuss with your doctor whether these are all necessary DAVI CRABTREE MD Mar 27, 2018 14:42
--- NOTE | 2018-03-27 14:43 | DS ---
Date/Time of Note Date/Time of Note DATE: 03/27/18 TIME: 14:42 Discharge Summary Admission/Discharge Info Admit Date/Time Mar 25, 2018 at 19:19 Discharge Date/Time Discharge Diagnosis LAURA Patient Condition: Stable Hospital Course 58 yo female presented with severe LAURA Her christy inhibitor was held and she was given IV fluid hydration. With this her creatinine resolved to normal. She was encouraged to stop taking lisinopril as well as gabapentin and tramadol as she was likley oversedated. Home Meds Reported Medications Aripiprazole* (Abilify*) 15 Mg Tablet, 15 MG PO DAILY, #30 TAB 03/25/18 Esomeprazole Mag Trihydrate (Nexium) 40 Mg Capsule.dr, 40 MG PO DAILY, #30 CAP 03/25/18 Quetiapine Fumarate* (Quetiapine Fumarate*) 300 Mg Tablet, 300 MG PO HS, TAB 03/25/18 Oxcarbazepine* (Oxcarbazepine*) 300 Mg Tablet, 300 MG PO BID, TAB 03/25/18 Tramadol Hcl* (Ultram*) 50 Mg Tablet, 50 MG PO Q8, TAB 03/25/18 Gabapentin* (Gabapentin*) 100 Mg Capsule, 100 MG PO TID, #90 CAP 03/25/18 Simvastatin* (Zocor*) 20 Mg Tablet, 20 MG PO QHS, #30 TAB 03/25/18 Lisinopril* (Lisinopril*) 40 Mg Tablet, 40 MG PO DAILY, #30 TAB 03/25/18 Loperamide Hcl* (Loperamide Hcl*) 2 Mg Cap, 2 MG PO, CAP 03/25/18 Discontinued Reported Medications Omeprazole* (Omeprazole*) 20 Mg Capsule.dr, 20 MG PO DAILY, #30 CAP 03/25/18 Discontinued Scripts Ranitidine Hcl* (Zantac*) 150 Mg Tablet, 150 MG PO BID PRN for GASTROINTESTINAL UPSET, #30 TAB Prov:MARLENY SORIANO 09/26/14 Follow-up Plan Stop taking lisinopril and gabapentin and tramadol You are on numerous sedating medications. Discuss with your doctor whether these are all necessary Primary Care Provider Not On Staff Doctor Pending Labs Laboratory Tests Test 03/27/18 06:04 White Blood Count 4.7 10^3/ul (4.8-10.8) Red Blood Count 3.40 10^6/ul (4.20-5.40) Hemoglobin 11.1 g/dl (12.0-16.0) Hematocrit 32.2 % (37.0-47.0) Mean Corpuscular Volume 94.7 fl (82.0-101.0) Mean Corpuscular Hemoglobin 32.6 pg (29.0-33.0) Mean Corpuscular Hemoglobin Concent 34.5 g/dl (32.0-37.0) Red Cell Distribution Width 12.2 % (11.5-14.5) Platelet Count 171 10^3/UL (140-415) Mean Platelet Volume 11.4 fl (7.4-10.4) Immature Granulocytes % 0.400 % (0.001-0.429) Neutrophils % 50.0 % (39.0-77.0) Lymphocytes % 34.7 % (15.0-51.0) Monocytes % 9.4 % (0.0-11.0) Eosinophils % 4.9 % (0.0-7.0) Basophils % 0.6 % (0.0-2.0) Nucleated Red Blood Cells % 0.0 /100WBC (0.0-0.0) Immature Granulocytes # 0.020 10^3/ul (0.0-0.031) Neutrophils # 2.4 10^3/ul (1.6-7.5) Lymphocytes # 1.6 10^3/ul (0.8-2.9) Monocytes # 0.4 10^3/ul (0.3-0.9) Eosinophils # 0.2 10^3/ul (0.0-0.5) Basophils # 0.0 10^3/ul (0.0-0.1) Nucleated Red Blood Cells # 0.0 10^3/ul (0.0-0.0) Sodium Level 138 mmol/L (135-144) Potassium Level 4.7 mmol/L (3.5-5.1) Chloride Level 109 mmol/L (97-110) Carbon Dioxide Level 21 mmol/L (21-31) Anion Gap 8 (5-13) Blood Urea Nitrogen 21 mg/dl (7-20) Creatinine 1.08 mg/dl (0.44-1.00) Est Glomerular Filtrat Rate mL/min 52 mL/min (>60) Glucose Level 100 mg/dl (70-220) Calcium Level 8.9 mg/dl (8.4-10.2) Total Bilirubin 0.2 mg/dl (0.2-1.3) Direct Bilirubin 0.00 mg/dl (0.00-0.20) Indirect Bilirubin 0.2 mg/dl (0-1.1) Aspartate Amino Transf (AST/SGOT) 19 IU/L (15-46) Alanine Aminotransferase (ALT/SGPT) 12 IU/L (13-69) Alkaline Phosphatase 75 IU/L (42-121) Total Protein 6.6 g/dl (6.1-8.1) Albumin 3.6 g/dl (3.3-4.9) Globulin 3.00 g/dl (1.3-3.2) Albumin/Globulin Ratio 1.20 DAVI CRABTREE MD Mar 27, 2018 14:43
[2018-03-27 14:47] VITALS: BP 171/83; PULSE 75; RESP 18
[2018-03-27 16:25] VITALS: BP 144/76; PULSE 74
== END 2018-03-27 18:11 | disposition home or self-care (01) | DRG 682 ==
LOC: E/R 17:30 → ICU 19:19 → PP2 03-26 16:19
PROVIDERS: ADMIT Family Medicine; ATTEND Family Medicine
DX: N17.9 Acute kidney failure, unspecified (principal); G92 Toxic encephalopathy; E87.1 Hypo-osmolality and hyponatremia; E87.0 Hyperosmolality and hypernatremia; R65.10 Systemic inflammatory response syndrome (SIRS) of non-infectious origin without acute organ dysfunction; I95.9 Hypotension, unspecified; E86.0 Dehydration; I10 Essential (primary) hypertension; E78.5 Hyperlipidemia, unspecified; D64.9 Anemia, unspecified
CPT/HCPCS: 36415; 70450; 71045; 74176; 76775; 80053; 80307; 81001; 81003; 82043; 82550; 82570; 83605; 83690; 83930; 83935; 84300; 84484; 85025; 85610; 85730; 87040; 87081; 87086; 90686; 93005; 93306; 93880; 93970; 94640; 94664; 96360; J1644; J7030